=== PATIENT | male | born 1965 | race Caucasian/White ===

== ENCOUNTER → 2023-11-25 09:31 | Outpatient (REF) | payer OTHER, SELFPAY | LOC: RAD 09:31 | PROVIDERS: ATTENDING PHYSICIAN Internal Medicine | DX: M54.12 Radiculopathy, cervical region (principal) | CPT/HCPCS: 72050 ==

== ENCOUNTER → 2024-08-12 12:12 | Outpatient (REF) | payer OTHER, SELFPAY | LOC: HWRAD 12:12 | PROVIDERS: ATTENDING PHYSICIAN Orthopaedic Surgery; FAMILY PHYSICIAN Internal Medicine | DX: R19.09 Other intra-abdominal and pelvic swelling, mass and lump (principal); M16.11 Unilateral primary osteoarthritis, right hip | CPT/HCPCS: 76882 ==

== ENCOUNTER → 2024-09-14 12:11 | Outpatient (REF) | payer BC, SELFPAY | LOC: RAD 12:11 | PROVIDERS: ATTENDING PHYSICIAN Internal Medicine | DX: R59.9 Enlarged lymph nodes, unspecified (principal) | CPT/HCPCS: 74177; Q9967 ==

== ENCOUNTER 2025-02-09 06:21 | Day surgery (SDC) | payer BC, SELFPAY | END 2025-02-09 11:34 | disposition home or self-care (01) | LOC: GI 06:21 | PROVIDERS: ATTENDING PHYSICIAN Internal Medicine Gastroenterology | DX: Z12.11 Encounter for screening for malignant neoplasm of colon (principal); D12.5 Benign neoplasm of sigmoid colon; K57.30 Diverticulosis of large intestine without perforation or abscess without bleeding; K64.9 Unspecified hemorrhoids; Z86.0100 Personal history of colon polyps, unspecified | CPT/HCPCS: 45380; 88305 ==